=== PATIENT | male | born 1985 | race Caucasian/White ===

== ENCOUNTER 2023-12-21 16:48 | Emergency (ER) | payer BC, OTHER ==
[~2023-12-21] VITALS: Ht 180.3 cm; Wt 86.2 kg
[2023-12-21 17:16] VITALS: BP 114/85; TEMP 97.8; O2SAT 95
[2023-12-21] MEDS ORDERED: MECLIZINE HCL 25 MG TABLET ONE (18:16)
[2023-12-21] MEDS ORDERED: METOCLOPRAMIDE HCL 10 MG/2 ML VIAL ONE (18:16)
[2023-12-21] MEDS: MECLIZINE HCL 12.5 MG TABLET PO ONE (18:23)
[2023-12-21] MEDS: METOCLOPRAMIDE HCL 10 MG/2 ML VIAL IV ONE (18:25)
[2023-12-21] MEDS: IV NS 0.9% 1,000 ML BAG IV ONE (18:25)
[2023-12-21 18:45] LABS: BASOPHILS % (AUTO) 0.1 % (0.0-2.0); HEMATOCRIT 42 % (39-51); HEMOGLOBIN 14.1 g/dL (13.5-17.5); LYMPHOCYTES # (AUTO) 0.5 K/uL (0.8-4.8); MEAN CORPUSCULAR HEMOGLOBIN 29 PG (26.0-33.0); MEAN CORPUSCULAR HGB CONC 33 g/dl (31.0-36.0); MEAN CORPUSCULAR VOLUME 88 fL (80-96); MONOCYTES % (AUTO) 8.4 % (2.0-12.0); NEUTROPHILS # (AUTO) 21.7 K/uL (1.8-8.9); NEUTROPHILS % (AUTO) 89.5 % (43.0-81.0); PLATELET COUNT (AUTO) 392 K/uL (150-450); RED CELL DISTRIBUTION WIDTH 13.8 % (11.5-15.0); WHITE BLOOD COUNT (AUTO) 24.3 K/uL (4.3-11.0)
[2023-12-21 19:34] LABS: CALCIUM, SERUM 7.6 mg/dL (8.5-10.1); CREATININE 1.8 mg/dL (0.6-1.3)
[2023-12-21 19:41] LABS: POTASSIUM 6.3 mmol/L (3.5-5.1)
[2023-12-21 19:56] LABS: ANISOCYTOSIS 1+; BAND % (MANUAL) 1 % (0.0-5.0); LYMPHOCYTES % (MANUAL) 4 % (16-48); MONOCYTES % (MANUAL) 5 % (0-11.0); NEUTROPHILS % (MANUAL) 90 (42-76); PLATELET ESTIMATE ADEQUATE
== END 2023-12-21 20:42 | disposition left against medical advice (07) ==
LOC: ER 16:54
DX: H93.13 Tinnitus, bilateral (principal); I10 Essential (primary) hypertension
CPT/HCPCS: 99283; 96374; 96361; 85025; 80048; 36415; 80179; 85007; J8597; J2765; J7030